=== PATIENT | male | born 1995 | race Two or more races ===

== ENCOUNTER 2020-02-02 06:00 | Day surgery (SDC) | payer OTHER ==
[~2020-02-02 06:00] MED LIST: PRILOSEC OTC20 MG
== END 2020-02-02 14:57 | disposition home or self-care (01) ==
LOC: CIR.AMB 06:00
PROVIDERS: ATTEND Surgery
DX: L72.12 Trichodermal cyst (principal); L72.11 Pilar cyst; Z20.828 Contact with and (suspected) exposure to other viral communicable diseases

== ENCOUNTER 2025-02-02 07:00 | Day surgery (SDC) | payer OTHER ==
[2025-01-27 10:46] VITALS: BP 125/79
[2025-01-27 11:17] LABS: BASO % 0.6 % (0.1-1.2); EOS # 0.13 (0.04-0.54); EOS % 2.4 % (0.7-7.0); LYMPH # 2.03 (1.18-3.74); LYMPH % 37.6 % (19.3-53.1); MEAN PLATELET VOLUME 9.90 fl (9.4-12.4); MONO # 0.42 (0.24-0.82); MONO % 7.8 % (4.7-12.5); NEUT # 2.78 (1.56-6.13); NEUT % 51.4 % (34.0-71.1); RED CELL DISTRIBUTION WIDTH 11.9 % (11.6-14.4)
[2025-01-27 11:22] LABS: URINE APPEARANCE Clear; URINE BILIRRUBIN Negative (NEGATIVE); URINE BLOOD Negative; URINE COLOR Yellow; URINE GLUCOSE Negative (NEGATIVE); URINE KETONE Negative (NEGATIVE); URINE LEUKOCYTE Negative; URINE NITRATE Negative; URINE PROTEIN Negative (NEGATIVE); URINE UROBILINOGEN 0.2 E.U./dl
[2025-01-27 11:30] LABS: URINE BACTERIA 0 uL (0.0-1933); URINE CAST 0.00 uL (0.0-1.40); URINE EPITHELIAL CELLS 0.7 uL (0.0-38.8); URINE RBC 1.6 uL (0.0-20.8); URINE WBC 0.9 uL (0.0-23.2)
[2025-01-27 11:34] LABS: INR 1.04
[2025-01-27 12:07] LABS: ALT/SGPT 28.0 U/L (12-78); AST/SGOT 18.0 U/L (15-37); BILIRUBIN TOTAL 0.92 mg/dL (0.3-1.2); BUN CREA RATIO 17.0 (7.0-25.0); CREATININE SERUM 0.83 mg/dL (0.70-1.30); GFR 108.78; GLOBULINA 3.3 G/DL (2.4-3.5); GLUCOSE FASTING 83.0 mg/dL (65-100); OSMOLALITY SERUM 285.0 MOSM/KG (275-295)
[~2025-02-02] VITALS: Ht 185.4 cm; Wt 111.1 kg
[2025-02-02] MEDS ORDERED: LIDOCAINE HCL 1% 20 ML VIAL IJ ONE (08:45)
[2025-02-02] MEDS ORDERED: LIDOCAINE HCL 1%/EPINEPHRINE 20ML VIAL IJ ONE (08:45)
[2025-02-02] MEDS ORDERED: CEFAZOLIN SODIUM 1,000 MG VIAL ONE (09:00)
== END 2025-02-02 12:00 | disposition home or self-care (01) ==
LOC: CIR.AMB 07:00
PROVIDERS: ATTEND Surgery
DX: D21.0 Benign neoplasm of connective and other soft tissue of head, face and neck (principal); R22.0 Localized swelling, mass and lump, head